=== PATIENT | female | born 1995 | race Caucasian/White ===

== ENCOUNTER 2016-10-08 12:48 | Emergency (ER) | payer MEDICAID, OTHER ==
[2016-10-08] MEDS ORDERED: KETOROLAC TROMETHAMINE 60 MG/2 ML VIAL IM ONE ×2 (13:47→14:00)
--- OUTSIDE RECORDS SUMMARY | 2016-10-08 13:47 | XMS REPORT | Continuity of Care Document ---
:1995 Author Organization [facility] ([facility]) [place] [address] Phone [phone] Care Team Providers Name Role Phone JihanSoren Wayne Primary Care Provider [phone] Source Comments This disclosure is being made pursuant to the Care Everywhere program, applicable federal and state laws, and may not contain all informaitonavailable regarding this patient.[facility] ([facility]) Active Allergies and Adverse Reactions No Known Allergies Current Medications Prescription Sig. Disp. Refills Start Date End Date Status multivitamin with Active minerals PO ferrous sulfate PO Take 65 mg by Active mouth 2 times daily. calcium carbonate PO Active Active Problems Currently Estimated Date of Delivery Comments Yes 09/04/2016 Based on Last Menstrual Period No additional problems on file Social History Tobacco Use Types Packs/Day Years Used Date Never Smoker Smokeless Tobacco: Never Used Alcohol Use Drinks/Week oz/Week Comments No Last Filed Vital Signs Vital Sign Reading Time Taken Blood Pressure 107/80 04/27/2016 9:41 AM [employer] Pulse 82 04/27/2016 9:41 AM [employer] Temperature 34.7 C (94.5 F) 04/27/2016 9:41 AM [employer] Respiratory Rate - - Height 1.6 m (5' 2.99") 04/27/2016 9:41 AM [employer] Weight 93.2 kg (205 lb 7.5 oz) 04/27/2016 9:41 AM [employer] Body Mass Index 36.41 04/27/2016 9:41 AM [employer] Oxygen Saturation - - Plan of Care Health Maintenance Due Date Last Done Comments Hepatitis B Vaccine (1 of 3 - Primary Series) 1993 HPV Vaccine (1 of 3 - Female/Unknown 3 Dose Series) 2004 Tdap Vaccine 2004 Cervical Cancer Screening 2011 Lipid Disorder Screening 2011 MMR Vaccine 2011 Td Vaccine 2011 Varicella Vaccine (1 of 2 - Adult - No Evidence of 2011 Immunity) Influenza Vaccine: Seasonal (#1) 01/19/2016 Results from Last 3 Months Not on file
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
[2016-10-08 15:09] VITALS: BP 130/76
== END 2016-10-08 15:11 | disposition home or self-care (01) ==
LOC: ER 12:48
DX: Z04.71 Encounter for examination and observation following alleged adult physical abuse (principal); S09.90XA Unspecified injury of head, initial encounter; Y04.8XXA Assault by other bodily force, initial encounter

== ENCOUNTER 2017-02-16 08:51 | Emergency (ER) | payer OTHER ==
[2017-02-16 08:58] VITALS: BP 137/64
--- NOTE | 2017-02-16 09:10 | ERNOTE ---
Integumentary HPI - General Presenting Symptoms: rash Time Seen by Provider: 02/16/17 08:58 Source: patient Exam Limitations: no limitations - Immun/Allergies/Home Medications Immunizations: IMMUNIZATION HX Immunizations Up to Date Yes History of Influenza Vaccine Yes Allergies/Adverse Reactions: Allergies Allergy/AdvReac Type Severity Reaction Status Date / Time No Known Allergies Allergy Verified 02/16/17 08:58 Home Medications: HOME MEDICATIONS Famotidine [Pepcid] 20 mg PO BID #10 tablet 02/16/17 [Last Taken Unknown] Ferrous Sulfate [Iron] 325 mg PO DAILY 02/16/17 [Last Taken Unknown] predniSONE [Deltasone] 20 mg PO BID #10 tablet 02/16/17 [Last Taken Unknown] - History of Present Illness Narrative: Patient presents with an urticarial type rash that is present on upper and lower extremities and abdomen. Describes the rash as being pruritic and somewhat burning in nature. Onset was this morning and possible contact was yesterday. Location: Reports: generalized Quality: Reports: itching, burning Severity: moderate Exposure: Reports: no cause identified Modifying Factors - (Worsens): Reports: nothing Associated Symptoms: Reports: hives Review of Systems - Review of Systems Constitutional: Present: See HPI EYE: Present: no symptoms reported ENT: Present: no symptoms reported Respiratory: Present: no symptoms reported Cardiology: Present: no symptoms reported Gastrointestinal/Abdominal: Present: no symptoms reported Genitourinary: Present: no symptoms reported Musculoskeletal: Present: no symptoms reported Skin: Present: See HPI, rash Neurological: Present: no symptoms reported Endocrine: Present: no symptoms reported Hematologic/Lymphatic: Present: no symptoms reported Psych: Present: no symptoms reported - Patient's Past Medical History Patient History - Medical: No pertinent hx Patient History - Cardiac/Respiratory: No pertinent hx Patient History - Cancer: No Hx of Cancer Patient History - Surgical Procedures: - Social History Living Situations: home Smoking Status: Never smoker Alcohol Use: none Drug Use: none - Immunizations Immunizations Up to Date: Yes History of Influenza Vaccine: Yes Physical Exam - Physical Exam General Appearance: Present: wd/wn, alert, moderate distress Head Exam: Present: normal inspection Eye Exam: Normal inspection: bilateral, PERRL: bilateral Ears, Nose, Throat: Present: normal ENT inspection, H, normal pharynx Neck: Present: normal inspection, nontender Respiratory: Present: no respiratory distress, normal breath sounds, no accessory muscle use, chest nontender, lungs clear Cardiovascular/Chest: Present: regular rate, rhythm, no murmur, normal peripheral pulses Gastrointestinal/Abdominal: Present: normal bowel sounds, nontender, nondistended, soft, no organomegaly Rectal Exam: Present: deferred Back Exam: Present: normal inspection, normal range of motion Extremity Exam: Present: normal inspection, non-tender, no edema, normal range of motion Neurological Exam: Present: alert, oriented, normal mood/affect Skin Exam: Present: skin rash - urticarial in nature Lymphatic Exam: Present: no adenopathy ED Progress - Vital Signs Patient's Vital Signs:: I have reviewed the patient's vital signs. Vital Signs: Vital Signs 02/16/17 08:54 Temperature 37 C Pulse Rate 88 Respiratory 14 Rate Blood Pressure 137/64 O2 Sat by Pulse 100 Oximetry - Progress/Reassessment Chief Complaint: Rash Plan - Plan Plan: Patient will be started on prednisone, Pepcid and Benadryl for the itching. Patient will follow-up with her family physician as needed. Departure Clinical Impression: Contact dermatitis Qualifiers: Contact dermatitis type: allergic Contact dermatitis trigger: unspecified trigger Qualified Code(s): L23.9 - Allergic contact dermatitis, unspecified cause - Departure Disposition: Home self-care Condition: Good Instructions: Contact Dermatitis, [id number] Additional Instructions: Use 25 mg of Benadryl every 4 hours as needed for itching Prescriptions: Famotidine [Pepcid] 20 mg PO BID #10 tablet predniSONE [Deltasone] 20 mg PO BID #10 tablet
== END 2017-02-16 09:20 | disposition home or self-care (01) ==
LOC: ER 08:51
DX: L23.9 Allergic contact dermatitis, unspecified cause (principal)